=== PATIENT | female | born 1960 | race Caucasian/White ===

== ENCOUNTER 2018-10-22 09:25 | Emergency (ER) | payer OTHER ==
[2018-10-22] MEDS: IBUPROFEN 600 MG TAB PO (10:10)
== END 2018-10-22 13:06 | disposition home or self-care (01) ==
LOC: FTE 09:25
DX: S82.51XA Displaced fracture of medial malleolus of right tibia, initial encounter for closed fracture (principal); S82.61XA Displaced fracture of lateral malleolus of right fibula, initial encounter for closed fracture; E11.9 Type 2 diabetes mellitus without complications; E03.9 Hypothyroidism, unspecified; W01.0XXA Fall on same level from slipping, tripping and stumbling without subsequent striking against object, initial encounter; Y92.9 Unspecified place or not applicable
CPT/HCPCS: 29515; 73590; 73610-RT; 73630; 99283-25